=== PATIENT | female | born 1990 | race Two or more races ===

== ENCOUNTER → 2019-07-15 | Outpatient (CLI) | payer OTHER | END | disposition home or self-care (01) | LOC: PRENATAL 14:00 | DX: O36.80X0 Pregnancy with inconclusive fetal viability, not applicable or unspecified (principal) ==

== ENCOUNTER → 2019-08-19 | Outpatient (CLI) | payer OTHER | END | disposition home or self-care (01) | LOC: PRENATAL 13:15 | DX: O35.3XX0 Maternal care for (suspected) damage to fetus from viral disease in mother, not applicable or unspecified (principal); O35.0XX0 Maternal care for (suspected) central nervous system malformation in fetus, not applicable or unspecified; O28.1 Abnormal biochemical finding on antenatal screening of mother ==

== ENCOUNTER → 2019-10-29 | Outpatient (CLI) | payer OTHER | END | disposition home or self-care (01) | LOC: PRENATAL 10-22 08:30 | DX: O26.843 Uterine size-date discrepancy, third trimester (principal); O99.213 Obesity complicating pregnancy, third trimester; O99.013 Anemia complicating pregnancy, third trimester; Z3A.31 31 weeks gestation of pregnancy ==

== ENCOUNTER → 2019-11-22 | Outpatient (CLI) | payer OTHER | END | disposition home or self-care (01) | LOC: PRENATAL 15:00 | DX: O26.843 Uterine size-date discrepancy, third trimester (principal); O24.419 Gestational diabetes mellitus in pregnancy, unspecified control; O34.219 Maternal care for unspecified type scar from previous cesarean delivery ==

== ENCOUNTER 2019-12-16 08:30 | Inpatient (IN) | payer OTHER ==
[~2019-12-16] VITALS: Ht 152.4 cm; Wt 3.6 kg
[2019-12-16] MEDS ORDERED: IRON PO (10:09)
[2019-12-16] MEDS ORDERED: PRENATABS RX T1 EACH PO (10:09)
[2019-12-16] MEDS ORDERED: PRENATAL PO (10:10)
[2019-12-21] MEDS ORDERED: PRENATAL CAPLE1 EAC1 PO (12:41)
[2019-12-21] MEDS ORDERED: IRON325 MG PO (12:42)
[2019-12-23] MEDS ORDERED: IBUPROFEN800 MG PO (14:00)
[2019-12-23] MEDS ORDERED: DOCUSATE SODIU100 MG PO (14:00)
== END 2019-12-23 14:41 | disposition home or self-care (01) | DRG 785 ==
LOC: OB/GYN 12-21 10:54 → LDR 12-21 10:54 → O/R 12-21 13:27 → OB/GYN 12-21 15:34
PROVIDERS: ADMIT Obstetrics & Gynecology
PROC: 0UB70ZZ Excision of Bilateral Fallopian Tubes, Open Approach (ICD-10-PCS; 2019-12-21)
PROC: 4A1HXFZ Monitoring of Products of Conception, Cardiac Rhythm, External Approach (ICD-10-PCS; 2019-12-21)
PROC: 10D00Z1 Extraction of Products of Conception, Low, Open Approach (ICD-10-PCS; principal; 2019-12-21 13:00)
DX: O13.3 Gestational [pregnancy-induced] hypertension without significant proteinuria, third trimester (principal); Z3A.39 39 weeks gestation of pregnancy; Z37.0 Single live birth; Z30.2 Encounter for sterilization